=== PATIENT | female | born 1940 | race Caucasian/White ===

== ENCOUNTER → 2019-11-26 09:23 | Outpatient (BNVA) | payer MEDICARE, SELFPAY | PROVIDERS: Family Provider Family Medicine; PCP Family Medicine; Visit Provider Emergency Medicine | DX: M25.561 Pain in right knee (principal); M17.12 Unilateral primary osteoarthritis, left knee | CPT/HCPCS: 73562 ==

== ENCOUNTER → 2020-06-09 09:33 | Outpatient (BNVA) | payer MEDICARE, SELFPAY | PROVIDERS: Family Provider Family Medicine; PCP Family Medicine; Visit Provider Family Medicine | DX: M17.12 Unilateral primary osteoarthritis, left knee (principal); E78.2 Mixed hyperlipidemia; I10 Essential (primary) hypertension; J30.2 Other seasonal allergic rhinitis; K59.04 Chronic idiopathic constipation; Z91.11 Patient's noncompliance with dietary regimen | CPT/HCPCS: 80053; 80061 ==

== ENCOUNTER → 2021-09-06 08:51 | Outpatient (BNVA) | payer MEDICARE, SELFPAY | PROVIDERS: Family Provider Family Medicine; PCP Family Medicine; Visit Provider Family Medicine | DX: I10 Essential (primary) hypertension (principal); E78.2 Mixed hyperlipidemia; Z13.1 Encounter for screening for diabetes mellitus; R73.9 Hyperglycemia, unspecified; M17.12 Unilateral primary osteoarthritis, left knee; E66.9 Obesity, unspecified | CPT/HCPCS: 80048; 80061; 83036 ==